=== PATIENT | female | born 1955 | race Caucasian/White ===

== ENCOUNTER 2019-01-21 09:07 | Day surgery (SDC) | payer OTHER ==
[~2019-01-21] VITALS: Ht 147.3 cm; Wt 44.1 kg
[~2019-01-21 09:07] MED LIST: 0.9% SODIUM CHLORIDE 10 ML SYRINGE IVP PRN; METOPROLOL TARTRATE 50 MG TABLET PO PRN
[2019-01-21] MEDS ORDERED: OMEP20 PO (10:05)
[2019-01-21] MEDS ORDERED: TRIA1CAP2 PO (10:05)
[2019-01-21] MEDS ORDERED: RANI150T7 PO (10:05)
[2019-01-21] MEDS ORDERED: PSYL660P13 PO (10:05)
[2019-01-21] MEDS ORDERED: MONT10TA21 PO (10:05)
[2019-01-21] MEDS ORDERED: ASPI81 PO (10:05)
[2019-01-21 10:08] LABS: CALCIUM, TOTAL 9.5 mg/dL (8.8-10.5); CREATININE 1.05 mg/dL (0.60-1.30); POTASSIUM 4.2 mmol/L (3.5-5.1)
[2019-01-21] MEDS ORDERED: NITROGLYCERIN 400 MCG/SUBLINGUAL SPRAY 4.9 GM BOTTLE SL ONE (11:29)
[2019-01-21] MEDS ORDERED: METOPROLOL TARTRATE 5 MG/5 ML VIAL ONE (11:30)
[2019-01-21] MEDS ORDERED: IOVERSOL 350 MG/ML 150 ML VIAL ONE (11:33)
[2019-01-21] MEDS ORDERED: SODIUM CHLORIDE 0.9% 100 ML ONE (11:33)
== END 2019-01-21 12:55 | disposition home or self-care (01) ==
LOC: SURGERY 09:07 → EDSTATUS 11:00 → SURGERY 12:55
PROVIDERS: ATTEND Internal Medicine Cardiovascular Disease
DX: R07.9 Chest pain, unspecified (principal); I10 Essential (primary) hypertension; I70.209 Unspecified atherosclerosis of native arteries of extremities, unspecified extremity; Z79.899 Other long term (current) drug therapy; Z98.890 Other specified postprocedural states
CPT/HCPCS: 36415; 75574; 80048; 93005; J7050; Q9967; J3490